=== PATIENT | female | born 1985 | race Caucasian/White ===

== ENCOUNTER 2017-02-01 13:29 | Emergency (ER) | payer OTHER ==
[~2017-02-01] VITALS: Ht 165.1 cm; Wt 72.0 kg
[2017-02-01 13:49] VITALS: Ht 165.1 cm; Wt 72.0 kg
[2017-02-01 14:35] LABS: URINE BLOOD (Dip) POC Negative (NEGATIVE)
[2017-02-01 14:50] LABS: ADD SCAN DIFF NO
[2017-02-01 14:55] LABS: BASOPHILS % 0.6 % (0.0-2.0); EOSINOPHILS # 0.3 10^3/ul (0.0-0.5); EOSINOPHILS % 3.6 % (0.0-7.0); HEMATOCRIT 43.2 % (37.0-47.0); HEMOGLOBIN 14.8 g/dl (12.0-16.0); LYMPHOCYTES # 1.7 10^3/ul (0.8-2.9); LYMPHOCYTES % 24.7 % (15.0-51.0); MEAN CORPUSCULAR HEMOGLOBIN 31.9 pg (29.0-33.0); MEAN CORPUSCULAR HGB CONC 34.3 g/dl (32.0-37.0); MEAN CORPUSCULAR VOLUME 93.1 fl (82.0-101.0); MEAN PLATELET VOLUME 10.5 fl (7.4-10.4); MONOCYTE # 0.5 10^3/ul (0.3-0.9); MONOCYTES % 6.6 % (0.0-11.0); NEUTROPHIL # 4.5 10^3/ul (1.6-7.5); NEUTROPHILS % 64.2 % (39.0-77.0); PLATELET COUNT 254 10^3/UL (140-415); RED BLOOD COUNT 4.64 10^6/ul (4.20-5.40); RED CELL DISTRIBUTION WIDTH 11.9 % (11.5-14.5); WHITE BLOOD COUNT 6.9 10^3/ul (4.8-10.8)
--- NOTE | 2017-02-01 15:00 | RADRPT ---
PROCEDURE: XR Chest. CLINICAL INDICATION: Chest pain. TECHNIQUE: Single frontal view of the chest was obtained. COMPARISON: None FINDINGS: The soft tissues are normal. The bony elements are normal. The heart, cardiomediastinal silhouette and hilar structures are normal. The pulmonary vasculature is normal. There is a left-sided aorta. The lungs are clear. The costophrenic angles are normal. IMPRESSION: 1. Normal chest x-ray. RPTAT:AAJJ Physician Claude Date Time Electronically viewed and signed by Brian Barry Physician on 02/01/2017 14:59 /
--- NOTE | 2017-02-01 15:06 | RADRPT ---
PROCEDURE: CT brain without contrast CLINICAL INDICATION: Headaches, dizziness TECHNIQUE: CT of the brain without contrast was performed on a multidetector CT scanner, with multi planar reformats. One or more of the following dose reduction techniques were used: Automated expos ure control, adjustment in mA and / or kV according to patient size, use of iterative reconstructive technique. CTDIvol = 44 mGy; DLP = 720 mGy-cm. COMPARISON: None available FINDINGS: No acute intracranial hemorrhage is identified. No extra-axial fluid collection is seen. There is no mass effect. No midline shift is identified. Ventricles and sulci are within normal limits for size and configuration. The density of the brain is within normal limits. Gold-white differentiation is preserved. Osseous structures are unremarkable. Mastoid air cells and imaged paranasal sinuses grossly clear. IMPRESSION: Unremarkable noncontrast CT of the brain. RPTAT: EE .Tristian Crawford MD, MD Date Time Electronically viewed and signed by .Tristian Crawford MD, on 02/01/2017 15:05 .O/
[2017-02-01 15:12] LABS: ALBUMIN 5.4 g/dl (3.3-4.9); ALBUMIN/GLOBULIN RATIO 1.8; BILIRUBIN,INDIRECT 1.4 mg/dl (0-1.1); BILIRUBIN,TOTAL 1.4 mg/dl (0.2-1.3); CALCIUM 9.9 mg/dl (8.4-10.2); CREATININE 0.78 mg/dl (0.44-1.00); POTASSIUM 3.7 mmol/L (3.5-5.1); TOTAL PROTEIN 8.4 g/dl (6.1-8.1)
--- NOTE | 2017-02-01 15:52 | ERD ---
ER Documentation Chief Complaint Date/Time DATE: 02/01/17 TIME: 15:45 Chief Complaint epigastric pain, dizziness x few months HPI This is a 31-year-old female who presents to the emergency department today complaining of chest pain and dizziness for the past 3 months. States she has also had swollen lymph nodes in her left armpit for 6 months. States that she was not too concerned with the dizziness however she states that today she started seeing stars and felt like she could not walk and wanted to "blackout". States that she did talk to her primary care doctor at the time about the chest pain and was told that it was acid reflux and told to take omeprazole. States that she has had vertigo in the past but this feels different. Denies any fevers or chills. Denies any blurred vision currently, nausea or vomiting. Denies heavy vaginal bleeding. ROS All systems reviewed and are negative except as per history of present illness. Medications Home Meds Active Scripts Naproxen* (Naprosyn*) 500 Mg Tablet, 500 MG PO BID Y for PAIN AND/OR INFLAMMATION, #30 TAB Prov:OMEGA GASTELUM PA-C 02/01/17 PMhx/Soc Medical and Surgical Hx: pt denies Medical Hx, pt denies Surgical Hx Hx Alcohol Use: No Hx Substance Use: No Hx Tobacco Use: No Smoking Status: Never smoker Physical Exam Vitals Vital Signs Date Time Temp Pulse Resp B/P Pulse Ox O2 Delivery O2 Flow Rate FiO2 02/01/17 13:49 98.1 100 18 131/68 100 Physical Exam Const: No acute distress Head: Atraumatic Eyes: Normal Conjunctiva. PERRLA. EOM intact ENT: Normal External Ears, Nose and Mouth. Neck: Full range of motion..~ No meningismus. Resp: Clear to auscultation bilaterally Cardio: Regular rate and rhythm, no murmurs Abd: Soft, non tender, non distended. Normal bowel sounds Skin: No petechiae or rashes no evidence of swollen lymph nodes. Back: No midline or flank tenderness Ext: No cyanosis, or edema Neur: Awake and alert cranial nerves II through XII intact. No gait ataxia. Psych: Normal Mood and Affect Result Diagram: 02/01/17 1440 02/01/17 1440 Results 24 hrs Laboratory Tests Test 02/01/17 14:39 02/01/17 14:40 Bedside Urine pH (LAB) 7.0 Bedside Urine Protein (LAB) Negative Bedside Urine Glucose (UA) Negative Bedside Urine Ketones (LAB) Negative Bedside Urine Blood Negative Bedside Urine Nitrite (LAB) Negative Bedside Urine Leukocyte Esterase (L Negative White Blood Count 6.910^3/ul Red Blood Count 4.6410^6/ul Hemoglobin 14.8g/dl Hematocrit 43.2% Mean Corpuscular Volume 93.1fl Mean Corpuscular Hemoglobin 31.9pg Mean Corpuscular Hemoglobin Concent 34.3g/dl Red Cell Distribution Width 11.9% Platelet Count 79753^3/UL Mean Platelet Volume 10.5fl Neutrophils % 64.2% Lymphocytes % 24.7% Monocytes % 6.6% Eosinophils % 3.6% Basophils % 0.6% Nucleated Red Blood Cells % 0.0/100WBC Neutrophils # 4.510^3/ul Lymphocytes # 1.710^3/ul Monocytes # 0.510^3/ul Eosinophils # 0.310^3/ul Basophils # 0.010^3/ul Nucleated Red Blood Cells # 0.010^3/ul Sodium Level 142mmol/L Potassium Level 3.7mmol/L Chloride Level 105mmol/L Carbon Dioxide Level 25mmol/L Anion Gap 16 Blood Urea Nitrogen 8mg/dl Creatinine 0.78mg/dl Glucose Level 91mg/dl Calcium Level 9.9mg/dl Total Bilirubin 1.4mg/dl Direct Bilirubin 0.00mg/dl Indirect Bilirubin 1.4mg/dl Aspartate Amino Transf (AST/SGOT) 23IU/L Alanine Aminotransferase (ALT/SGPT) 33IU/L Alkaline Phosphatase 59IU/L Total Protein 8.4g/dl Albumin 5.4g/dl Globulin 3.00g/dl Albumin/Globulin Ratio 1.80 Lipase 173U/L DIAGNOSTIC IMAGING REPORT Patient: RUDDY CEE : 1985 Age: 31 Sex: F MR #: [id number] DOS: 02/01/17 0000 Ordering MD: OMEGA GASTELUM PA-C Location: [facility] Room/Bed: PROCEDURE: XR Chest. CLINICAL INDICATION: Chest pain. TECHNIQUE: Single frontal view of the chest was obtained. COMPARISON: None FINDINGS: The soft tissues are normal. The bony elements are normal. The heart, cardiomediastinal silhouette and hilar structures are normal. The pulmonary vasculature is normal. There is a left-sided aorta. The lungs are clear. The costophrenic angles are normal. IMPRESSION: 1. Normal chest x-ray. RPTAT:AAJJ Physician Claude Date Time Electronically viewed and signed by Brian Barry Physician on 02/01/2017 14:59 JM/ CC: OMEGA GASTELUM PA-C DIAGNOSTIC IMAGING REPORT Patient: RUDDY CEE : 1985 Age: 31 Sex: F MR #: [id number] DOS: 02/01/17 0000 Ordering MD: OMEGA GASTELUM PA-C Location: [facility] Room/Bed: PROCEDURE: CT brain without contrast CLINICAL INDICATION: Headaches, dizziness TECHNIQUE: CT of the brain without contrast was performed on a multidetector CT scanner, with multiplanar reformats. One or more of the following dose reduction techniques were used: Automated exposure control, adjustment in mA and / or kV according to patient size, use of iterative reconstructive technique. CTDIvol = 44 mGy; DLP = 720 mGy-cm. COMPARISON: None available FINDINGS: No acute intracranial hemorrhage is identified. No extra-axial fluid collection is seen. There is no mass effect. No midline shift is identified. Ventricles and sulci are within normal limits for size and configuration. The density of the brain is within normal limits. Gold-white differentiation is preserved. Osseous structures are unremarkable. Mastoid air cells and imaged paranasal sinuses grossly clear. IMPRESSION: Unremarkable noncontrast CT of the brain. RPTAT: EE .Tristian Crawford MD, Date Time Electronically viewed and signed by .Tristian Crawford MD, MD on 02/01/2017 15:05 .O/ CC: OMEGA GASTELUM PA-C Procedures/[facility] This is a 31-year-old female who presents to the emergency department today with multiple complaints however she is primarily complaining of chest pain and dizziness that is been intermittent for the past 3 months but worse today. Given patient's complaints I did obtain laboratory work as well as imaging Laboratory work shows no elevated white blood cell count. She is not anemic. Platelets are within normal limits. Electrolytes are within normal limits. Liver functions were normal limits. Lipase within normal limits per UA is negative for infection test is negative. EKG read and interpreted by Dr. Chaudhry. Rate [address] elevation. No QT prolongation. Normal sinus rhythm. Low suspicion for acute [place], PE, pericarditis. Chest x-ray is normal. Lungs are clear. Low suspicion for pneumonia, PE, abscess, pleural effusion, pneumothorax Head CT noncontrast is unremarkable. There is no acute intracranial hemorrhage. Patient has dizziness and chest pain of uncertain etiology. Patient did have some chest pain with movement in tender to palpation right under her sternum and may be related to costochondritis. Low suspicion for cardiac cause, anemia , electrolyte imbalance, sepsis or infection as cause of dizziness. Patient has had no syncopal episode. Other differentials to consider BPV, inner ear problems, anxiety. I explained all this to the patient. Patient will be given a prescription for Naprosyn to treat possible costochondritis. Low suspicion for gastritis, gastric reflux. Patient declined meclizine At this time the patient is stable for discharge and outpatient management. Patient should follow up with their PCP in the next 1-2 days. They may return to the emergency department sooner for any persistent or worsening of symptoms. Patient understood and agreed with the plan. Departure Diagnosis: Primary Impression: Dizziness Additional Impression: Chest pain Chest pain type: unspecified Qualified Code: R07.9 - Chest pain, unspecified type Condition: Fair OMEGA GASTELUM PA-C Feb 01, 2017 15:52
[2017-02-01] MEDS ORDERED: NAPR-260 PO (16:00)
== END 2017-02-01 16:13 | disposition home or self-care (01) ==
LOC: FTE 13:29
DX: R42 Dizziness and giddiness (principal); R07.9 Chest pain, unspecified
CPT/HCPCS: 70450; 71010; 80053; 81003; 83690; 85025; 93005